=== PATIENT | male | born 1985 | race Caucasian/White ===

== ENCOUNTER 2023-06-13 13:35 | Emergency (ER) | payer MEDICAID, MEDICARE ==
[~2023-06-13] VITALS: Ht 175.3 cm; Wt 89.5 kg
[2023-06-13] MEDS: diphenhdrAMINE HCL 25 MG CAP PO ONE (14:20)
[2023-06-13] MEDS: LORazepam 2MG/ML-1ML VIAL IM ONE (14:20)
[2023-06-13 18:13] LABS: Amphetamine Screen, Urine Neg (NEGATIVE); Barbiturate Scree,Urine Neg (NEGATIVE); Benzodiazephine Screen, Urine Neg (NEGATIVE); Cocaine Screen, Urine Neg (NEGATIVE); Opiate Scree,Urine Neg (NEGATIVE); Phencyclidine Screen, Urine Neg (NEGATIVE)
[2023-06-13 18:14] LABS: Cannabinoid Screen, Urine Pos (NEGATIVE)
[2023-06-14 19:40] VITALS: BP 107/74; PULSE 72; RESP 16; TEMP 98; O2SAT 99
== END 2023-06-14 18:50 | disposition short-term general hospital (02) ==
LOC: ER 13:35
DX: F29 Unspecified psychosis not due to a substance or known physiological condition (principal); F17.210 Nicotine dependence, cigarettes, uncomplicated; Z79.899 Other long term (current) drug therapy
CPT/HCPCS: 80307; 96372; 99285; J2060

== ENCOUNTER 2025-01-06 21:15 | Emergency (ER) | payer OTHER, MEDICAID ==
[~2025-01-06] VITALS: Ht 170.2 cm; Wt 86.4 kg
[2025-01-06 21:28] VITALS: BP 124/83; PULSE 106; RESP 16; TEMP 98.7; O2SAT 98
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
== END 2025-01-06 21:45 ==
LOC: ER 21:15
DX: M25.511 Pain in right shoulder (principal); M54.2 Cervicalgia; F17.210 Nicotine dependence, cigarettes, uncomplicated; V89.2XXA Person injured in unspecified motor-vehicle accident, traffic, initial encounter; Y93.I9 Activity, other involving external motion; Y92.488 Other paved roadways as the place of occurrence of the external cause; Y99.8 Other external cause status